=== PATIENT | female | born 1990 ===

== ENCOUNTER → 2017-05-28 | Outpatient (CLI) | payer BC | LOC: SLR 11:00 | PROVIDERS: ATTEND Specialist | DX: G47.30 Sleep apnea, unspecified (principal); I10 Essential (primary) hypertension; E66.9 Obesity, unspecified | CPT/HCPCS: G0399 ==

== ENCOUNTER → 2017-06-07 | Outpatient (CLI) | payer BC | LOC: SLR 11:00 | PROVIDERS: ATTEND Specialist | DX: G47.33 Obstructive sleep apnea (adult) (pediatric) (principal); I10 Essential (primary) hypertension | CPT/HCPCS: 95811 ==